=== PATIENT | female | born 1980 | race Caucasian/White ===

== ENCOUNTER 2022-04-16 18:01 | Emergency (ER) | payer OTHER ==
[~2022-04-16] VITALS: Ht 149.9 cm; Wt 68.0 kg
[~2022-04-16 18:01] MED LIST: VIC
[2022-04-16 19:15] VITALS: BP 145/90
--- NOTE | 2022-04-16 19:18 | NUR ---
TO LOBBY A/W BED AMBULATORY
[2022-04-16 21:22] LABS: APPEARANCE,URINE CLEAR (CLEAR); BILIRUBIN,URINE NEGATIVE (NEGATIVE); BLOOD, URINE 1+ (NEGATIVE); COLOR,URINE YELLOW (YELLOW); LEUKOCYTE ESTERASE ,URINE NEGATIVE (NEGATIVE); NITRITE, URINE POSITIVE (NEGATIVE); PH,URINE 6.5 (5.0-9.0); UGLUCOSE NEGATIVE (NEGATIVE)
--- NOTE | 2022-04-16 21:23 | NUR ---
PT NOTIFIED ADMITTING STAFF THAT SHE WAS LEAVING. PT ELOPED AT THIS TIME
[2022-04-16 21:35] LABS: OTHER CASTS, URINE None Seen /LPF (None Seen); WBC,URINE 0-5 /HPF (0-5)
== END 2022-04-16 21:23 | disposition left against medical advice (07) ==
LOC: MED 18:01
DX: R10.30 Lower abdominal pain, unspecified (principal); M54.2 Cervicalgia; M54.50 Low back pain, unspecified
CPT/HCPCS: 81001; 81025; 99283